=== PATIENT | female | born 1985 | race Two or more races ===

== ENCOUNTER 2020-10-04 12:59 | Inpatient (IN) | payer BC ==
[~2020-10-04] VITALS: Ht 157.5 cm; Wt 59.0 kg
--- NOTE | 2020-10-04 13:19 | NUR ---
awaiting for Dr. Canas to see the patient
[2020-10-04] MEDS ORDERED: IV NS 0.9% 1,000 ML BAG IV ONE (13:30)
[2020-10-04 13:43] LABS: BASOPHILS % (AUTO) 0.1 % (0.0-2.0); EOSINOPHILS % (AUTO) 0.3 % (0.0-6.0); HEMATOCRIT 24 % (33-45); HEMOGLOBIN 8.2 g/dL (11.5-14.8); LYMPHOCYTES # (AUTO) 0.9 K/uL (0.8-4.8); LYMPHOCYTES % (AUTO) 12.4 % (20.0-44.0); MEAN CORPUSCULAR HGB CONC 35 g/dl (31.0-36.0); MEAN CORPUSCULAR VOLUME 93 fL (82-100); MONOCYTES # (AUTO) 0.3 K/uL (0.1-1.30); NEUTROPHILS # (AUTO) 6.2 K/uL (1.8-8.9); NEUTROPHILS % (AUTO) 83.2 % (43.0-81.0); PLATELET COUNT (AUTO) 122 K/uL (150-450); RED BLOOD CELL COUNT(AUTO) 2.55 MIL/uL (4.0-5.2); WHITE BLOOD COUNT (AUTO) 7.4 K/uL (4.3-11.0)
[2020-10-04 13:51] LABS: CREATININE 0.6 mg/dL (0.6-1.3); POTASSIUM 3.4 mmol/L (3.5-5.1)
[2020-10-04] MEDS ORDERED: IBUPROFEN 600 MG TABLET ONE (14:23)
[2020-10-04] MEDS ORDERED: LORAZEPAM 0.5 MG TABLET ONE (14:25)
[2020-10-04] MEDS ORDERED: IBUPROFEN 600 MG TABLET PO ONE (14:30)
[2020-10-04] MEDS ORDERED: LORAZEPAM 1 MG TABLET PO ONE (14:30)
--- NOTE | 2020-10-04 14:43 | NUR ---
CALLED DR NIEVES, LEFT VOICEMAIL
--- NOTE | 2020-10-04 14:44 | NUR ---
ATIVAN IV IS NOT GIVEN. PT WAS GIVEN ATIVAN 0.5 MG GIVEN PO.
[2020-10-04] MEDS ORDERED: LORAZEPAM INJ 2 MG/ML VIAL IV ONE (15:00)
[2020-10-04] MEDS ORDERED: OXYTOCIN 10 UNIT/ML ML IV ONE (15:00)
[2020-10-04] MEDS ORDERED: METHYLERGONOVINE MALEATE 0.2 MG/ML AMPUL IM ONE (15:00)
--- NOTE | 2020-10-04 15:01 | NUR ---
BLOOD PRESSURE 91/53 [address] HEART RATE 120. DR KAYE AWARE.
[2020-10-04] MEDS ORDERED: OXYTOCIN 10 UNIT/ML ML ONE (15:16)
[2020-10-04] MEDS ORDERED: METHYLERGONOVINE MALEATE 0.2 MG/ML AMPUL ONE (15:18)
[2020-10-04 15:26] LABS: HEMOGLOBIN 8.1 g/dL (11.5-14.8)
--- NOTE | 2020-10-04 15:27 | NUR ---
DR. TERRAZAS AT BEDSIDE.
--- NOTE | 2020-10-04 15:29 | NUR ---
CALLED NURSING SUP FOR TELE BED.
[2020-10-04] MEDS ORDERED: ACETAMINOPHEN 325 MG TABLET PO PRN (15:30)
[2020-10-04] MEDS ORDERED: Z GUARD REMEDY 2 OZ OINT TP PRN (15:30)
[2020-10-04] MEDS ORDERED: IV NS 0.9% 1,000 ML IV ONE (15:30)
[2020-10-04] MEDS ORDERED: MAGNESIUM HYDROXIDE 30 ML UDC PO PRN (15:30)
[2020-10-04] MEDS ORDERED: ONDANSETRON HCL/PF 4 MG/2 ML VIAL IVP PRN (15:30)
[2020-10-04] MEDS ORDERED: MORPHINE SULFATE INJ 2 MG/ML DISP.SYRIN IV PRN (15:30)
[2020-10-04] MEDS ORDERED: MAG HYDROX/AL HYDROX/SIMETH 30 ML UDC PO PRN (15:30)
--- NOTE | 2020-10-04 15:52 | NUR ---
COVID SWAB DONE AND SENT TO THE LAB
--- NOTE | 2020-10-04 16:45 | NUR ---
DR CASILLAS AWARE OF LATIC ACID LEVEL OF 2.0.
--- NOTE | 2020-10-04 16:46 | NUR ---
NURSING SUP GAVE TELE BED 322-1.
[2020-10-04] MEDS: PANTOPRAZOLE 40 MG VIAL IV SCH (17:00)
--- NOTE | 2020-10-04 17:24 | NUR ---
Report given to nurse Katherine
--- NOTE | 2020-10-04 17:52 | NUR ---
Tasia england in ED - 10/04/20 at 1752 by ANABELLE Patient discharged to home in stable condition. Written and verbal after care instructions given. Patient verbalizes understanding of instruction.
--- NOTE | 2020-10-04 17:52 | NUR ---
THE PATIENT IN STABLE CONDITION AND TRANSFERED TO ASSIGNED ROOM PER POLICY.
--- NOTE | 2020-10-04 17:55 | NUR ---
BILLING ASSOCIATE NOTE RECEIVED PATIENT FROM ER. PATIENT CAME INTO HOSPITAL COMPLAINING OF EXCESSIVE VAGINAL BLEEDING. PATIENT IS STABLE FOR NOW. AND FAMILY AT BEDSIDE. PATIENT IS A/O X4. STABLE ON ROOM AIR - NO SOB OR DISTRESS/DISCOMFORT NOTED. PATIENT IS AMBULATORY. ON TELE MONITOR - READS SINUS TACHY IN THE 120'S. IV ACCESS TO RIGHT FOREARM #18 - RUNNING NS @ 150ML/HR. SAFETY MEASURES IN PLACE. CALL LIGHT WITHIN REACH. WILL CONTINUE TO MONITOR.
[2020-10-04] MEDS ORDERED: ZOLPIDEM TARTRATE 5 MG TABLET PO PRN (18:00)
[2020-10-04] MEDS: IV NS 0.9% 1,000 ML IV PRN ×2 (18:14→23:36)
--- NOTE | 2020-10-04 19:11 | NUR ---
LITHOGRAPHIC GENERAL WORKER CLOSING NOTE PATIENT CURRENTLY LYING IN BED, FAMILY AT BEDSIDE. A/O X4. STABLE ON ROOM AIR - NO SOB OR DISTRESS/DISCOMFORT NOTED. PATIENT IS AMBULATORY. ON TELE MONITOR - READS SINUS TACHY IN THE 120'S. IV ACCESS TO RIGHT FOREARM #18 - RUNNING NS @ 150ML/HR. NO PAIN NOTED AT THIS TIME. SAFETY MEASURES IN PLACE. CALL LIGHT WITHIN REACH. WILL ENDORSE TO CORRECTIONAL CORPORAL NURSE FOR DUC.
[2020-10-04 19:43] LABS: BILIRUBIN,DIRECT 0.1 mg/dL (0.0-0.2); BILIRUBIN,TOTAL 0.4 mg/dL (0.2-1.0)
[2020-10-04 20:00] VITALS: BP 110/63
--- NOTE | 2020-10-04 20:00 | NUR ---
RN NOTES POTASSIUM IS 3.4- MD IS AWARE
--- NOTE | 2020-10-04 20:05 | NUR ---
RN NOTES RECEIVED PATIENT AWAKE ON HER BED, ST ON TELE MONITOR HR-103, PATIENT HAS VAGINAL BLEEDING, -md IS AWARE, DENIES PAIN, NO SOB, CALL LIGHT WITHIN REACH, [id number], WILL CONTINUE TO MONITOR
[2020-10-05] VITALS: BP 112/58
[2020-10-05 00:01] LABS: HEMOGLOBIN 6.8 g/dL (11.5-14.8)
--- NOTE | 2020-10-05 00:37 | NUR ---
RN NOTES PATIENT H&H WENT DOWN TO 6.8, GOT AN ORDER FROM DOMINICK SILVA AND GOT AN ORDER OF 1 UNIT PRBC, ORDER NOTED AND CARRIED OUT
--- NOTE | 2020-10-05 00:45 | NUR ---
RN NOTES TALKED TO THE PATIENT AND INFORMED THE PATIENT REGARDING HER H&H LEVEL, PATIENT AGREED AND SIGNED THE CONSENT
[2020-10-05 02:20] VITALS: BP 113/60
--- NOTE | 2020-10-05 02:20 | NUR ---
RN NOTES 1 UNIT PRBC STARTED, V/S STABLE, WILL MONITOR
--- NOTE | 2020-10-05 02:29 | NUR ---
rn notes patient asked for Ativan, she's having panic attack because blood transfusion- got an order ftrom Waldo Ortega-ROOF DESIGNER Ativan 0.5mg IV PRN order noted and carried out
[2020-10-05] MEDS ORDERED: LORAZEPAM INJ 2 MG/ML VIAL IV PRN (02:30)
[2020-10-05 02:35] VITALS: BP 118/70
--- NOTE | 2020-10-05 02:45 | NUR ---
RN NOTES PATIENT HAS PANIC ATTACK - ATIVAN 0.5MG IV GIVEN ORDERED, V/S STABLE
[2020-10-05 04:00] VITALS: BP 109/66
[2020-10-05 05:10] VITALS: BP 109/66
--- NOTE | 2020-10-05 05:10 | NUR ---
RN NOTES BLOOD TRANSFUSION DONE, NO REACTION NOTED, V/S STABLE
--- NOTE | 2020-10-05 06:45 | NUR ---
RN NOTES AWAKE, DENIES PAIN, NO SOB, CALL LIGHT WITHIN REACH, [id number], PT. NEEDS ATTENDED
[2020-10-05 07:13] LABS: BASOPHILS % (AUTO) 0.1 % (0.0-2.0); EOSINOPHILS % (AUTO) 0.9 % (0.0-6.0); HEMATOCRIT 22 % (33-45); HEMOGLOBIN 7.7 g/dL (11.5-14.8); LYMPHOCYTES % (AUTO) 39.2 % (20.0-44.0); MEAN CORPUSCULAR HGB CONC 35 g/dl (31.0-36.0); MEAN CORPUSCULAR VOLUME 91 fL (82-100); MONOCYTES # (AUTO) 0.3 K/uL (0.1-1.30); MONOCYTES % (AUTO) 5.4 % (2.0-12.0); NEUTROPHILS # (AUTO) 2.8 K/uL (1.8-8.9); NEUTROPHILS % (AUTO) 54.4 % (43.0-81.0); PLATELET COUNT (AUTO) 120 K/uL (150-450); RED BLOOD CELL COUNT(AUTO) 2.45 MIL/uL (4.0-5.2); WHITE BLOOD COUNT (AUTO) 5.2 K/uL (4.3-11.0)
[2020-10-05 07:42] LABS: ALBUMIN 2.7 g/dL (3.4-5.0); BILIRUBIN,TOTAL 0.8 mg/dL (0.2-1.0); CREATININE 0.6 mg/dL (0.6-1.3); MAGNESIUM 1.9 mg/dL (1.8-2.4); PHOSPHORUS 2.9 mg/dL (2.5-4.9); POTASSIUM 3.8 mmol/L (3.5-5.1); TOTAL PROTEIN, SERUM 5.2 g/dL (6.4-8.2)
--- NOTE | 2020-10-05 07:45 | NUR ---
RN OPENING NOTE PT AWAKE IN BED RESTING. ON RA WITH NO SOB OR RESPIRATORY DISTRESS PRESENT. A/O X4 AND VINCENTIAN SPEAKING. NO COMPLAINT OF PAIN OR NAUSEA. ON MASTER CONTROL SUPERVISOR. NO EDEMA PRESENT. ON BEDREST WITH DIAPER PRESENT. SKIN IS INTACT. IV PRESENT ON R AC 18 WITH NS RUNNING. LABS AND ORDERS REVIEWED. SAFETY MEASURES IN PLACE. SIDE RAILS RAISED. BED LOWERED. CALL LIGHT WITHIN REACH. WILL CONTINUE TO MONITOR.
[2020-10-05] MEDS: PANTOPRAZOLE 40 MG VIAL IV SCH (08:10)
--- NOTE | 2020-10-05 09:09 | NUR ---
AN[employer]OID ARCHITECT NOTE PT DISCHARGED HOME IN STABLE CONDITION. NO NEW PRESCRIPTIONS TO PT. BELONGINGS CHECKED AND GIVEN TO PT. IV LINE REMOVED. ID BANDS REMOVED. V.S. STABLE. F/U WITH OBGYN WITHIN 1 WEEK. EXITCARE EDUCATION UTILIZED AND EDUCATION GIVEN TO PT. PT BROUGHT HOME VIA PRIVATE CAR ACCOMPANIED BY .
== END 2020-10-05 09:07 | disposition home or self-care (01) | DRG 770 ==
LOC: ER 13:00 → TELE 17:00
PROVIDERS: ADMIT Internal Medicine; ATTEND Internal Medicine
PROC: 10D17ZZ Extraction of Products of Conception, Retained, Via Natural or Artificial Opening (ICD-10-PCS; principal; 2020-10-05)
PROC: 30233N1 Transfusion of Nonautologous Red Blood Cells into Peripheral Vein, Percutaneous Approach (ICD-10-PCS; 2020-10-05)
DX: O02.1 Missed abortion (principal); D62 Acute posthemorrhagic anemia; E87.1 Hypo-osmolality and hyponatremia; E87.2 Acidosis; O04.6 Delayed or excessive hemorrhage following (induced) termination of pregnancy; E87.6 Hypokalemia; D69.6 Thrombocytopenia, unspecified; T47.1X5A Adverse effect of other antacids and anti-gastric-secretion drugs, initial encounter; Y92.009 Unspecified place in unspecified non-institutional (private) residence as the place of occurrence of the external cause; Z20.822 Contact with and (suspected) exposure to COVID-19
CPT/HCPCS: 36415; 76856-TC; 80048-TC; 80053-TC; 82247-TC; 82248-TC; 83540-TC; 83605-TC; 83735-TC; 84100-TC; 84702-TC; 85025-TC; 85027-TC; 85730-TC; 87081-TC; 88305-TC; A6403; C9113; C9803; G0378; J2060; J2210; J2590; J7030; J7050; P9016

== ENCOUNTER 2024-11-22 23:11 | Emergency (ER) | payer BC, OTHER ==
[~2024-11-22] VITALS: Ht 157.5 cm; Wt 63.5 kg
[2024-11-23 00:25] LABS: APPEARANCE,URINE CLEAR (CLEAR); BLOOD, URINE 1+ Ery/uL (NEGATIVE); LEUKOCYTE ESTERASE ,URINE NEGATIVE (NEGATIVE); NITRITE, URINE NEGATIVE (NEGATIVE); UGLUCOSE NEGATIVE (NEGATIVE)
[2024-11-23 00:34] LABS: ADD URINE CULTURE YES; SQUAMOUS EPITHELIAL CELL,UR Few /HPF (None Seen)
[2024-11-23 00:46] LABS: PLATELET COUNT (AUTO) 187 K/uL (150-450); RED BLOOD CELL COUNT(AUTO) 4.26 MIL/uL (4.0-5.2); RED CELL DISTRIBUTION WIDTH 12.6 % (11.5-15.0); WHITE BLOOD COUNT (AUTO) 7.0 K/uL (4.3-11.0)
[2024-11-23 01:13] LABS: CALCIUM, SERUM 9.9 mg/dL (8.5-10.1); CREATININE 0.9 mg/dL (0.6-1.3); PREGNANCY TEST SERUM QUAN 61.0 mIU/mL (0-6); SODIUM SERUM 141.0 mmol/L (136-145); UREA NITROGEN, BLOOD 16.0 mg/dL (7-18)
[2024-11-23] MEDS ORDERED: NITR100C6 PO (01:28)
[2024-11-23 01:49] VITALS: BP 99/56; TEMP 98.3; O2SAT 96
== END 2024-11-23 01:50 | disposition home or self-care (01) ==
LOC: ER 23:12
DX: O20.9 Hemorrhage in early pregnancy, unspecified (principal); O23.41 Unspecified infection of urinary tract in pregnancy, first trimester; R10.2 Pelvic and perineal pain; O09.521 Supervision of elderly multigravida, first trimester; Z3A.01 Less than 8 weeks gestation of pregnancy; Z88.0 Allergy status to penicillin
CPT/HCPCS: 36415; 76856-TC; 80048-TC; 81001; 84702-TC; 85025-TC; 86850-TC; 87086-TC